=== PATIENT | female | born 1955 | race Caucasian/White ===

== ENCOUNTER 2025-02-13 16:05 | Outpatient (AMB) | payer OTHER, SELFPAY ==
--- NOTE | 2025-02-13 16:07 | AM.OFFWIN_ITS ---
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 Patient Tobacco Use Status: Never used Tobacco Allergies No Known Allergies Allergy (Verified 02/13/25 16:10) Do you need a note to return to daycare/school/sports/work: No HPI HPI Comments History of Present Illness Details History of Present Illness - The patient is a 69-year-old female pr esenting with acute right knee pain and swelling. - Approximately two weeks ago, the patie nt twisted her right leg while moving through a doorway, which resulted in an injury. - Post-injury, care was sought at the ER , where the knee was drake wrapped; no x- ray was conducted at that time. - Pain developed about five days post-in jury on the side of the right leg. - Treatments included the application of ice and administration of Motrin, with little relief noted. - Currently, the pain is severe, primari ly around the right knee, with associated swelling when compared to the contralateral limb. - The patient has no history of thrombot ic events and denies current anticoagulation therapy. - The recent incident has led to decreas ed ambulatory function, contributing to a sedentary lifestyle. Physical Exam General: Cooperative, healthy appearing, comfortable, no acute distress and well developed Orientation: Patient oriented x3 Limitations: No limitations Head: Normal to inspection Ears: Hearing grossly normal bilaterally Nose: Normal External nose present Face and sinus: Normal facial exam Eyes: Appearance normal, both eyes and all related structures Neck: Normal visual inspection and Yes full ROM Respiratory: Normal respiratory effort and able to speak in complete sentences. Clear to auscultation bilaterally Cardiovascular: Regular rate and rhythm. Normal S1 and S2 Skin: No rashes or lesions noted Neuro: Patient oriented x3 Extremities: Right leg more swollen than left leg, with pain reported in the knee area. No pain upon squeezing the calf. Ankle movement is fine. PFSH Social History Patient Tobacco Use Status: Never used Tobacco Review of Systems Const All systems reviewed & are unremarkable except as noted in HPI and below Physical Exam Vital Signs: Last Vital Signs Pulse 77 02/13/25 16:13 BP 130/86 02/13/25 16:13 Pulse Ox 98 02/13/25 16:13 Oxygen Delivery Method Room Air 02/13/25 16:13 Assessment & Plan Assessment & Plan (1) Right leg pain: Code(s): M79.604 - Pain in right leg Plan: VSS pt well appearing, PE remarkable for right calf swelling. Given calf pain, calf swelling and recent reduced mobility due to the knee pain, an ultrasound is ordered to assess for venous thrombosis. Right LE US was negative for DVT. The patient exhibits symptoms of a right knee injury, potentially related to a strain and associated with marked swelling. The recommendation involves awaiting previous x-ray results to inform further management, utilizing an DRAKE wrap for support, and RX'd meloxicam to manage pain and inflammation. The patient is instructed to observe for symptom progression and maintain contact with her primary care physician, particularly pertaining to prior imaging results. Emphasis is placed on mobilization as safely tolerated to avoid complications associated with immobility. Patient is has been said he can borrow a walker from a friend to help her ambulate safely. She does have crutches she is using right now and an Drake wrap. I also recommended she ask her PCP for an orthopedics referral as her right knee pain does not seem to be getting better and it has been 2 weeks. Patient was informed and verbally consented to the use of an ambient scribe for clinic note documentation during this visit. (2) Right leg swelling: Code(s): M79.89 - Other specified soft tissue disorders Plan: as above (3) Right knee pain: Code(s): M25.561 - Pain in right knee Qualifiers: Chronicity: acute Qualified Code(s): M25.561 - Pain in right knee Plan: as above Orders: Orders US venous duplex LE RT Today M79.604 - Pain in right leg, M79.89 - Other specified soft tissue disorders Medications: New meloxicam 15 mg PO DAILY 15 tabs 0RF Coding Level of Care Code New Pt Level 4 (54939) Diagnoses Right leg pain M79.604 Right leg swelling M79.89 Acute pain of right knee M25.561 Chronicity: acute
[2025-02-13 16:13] VITALS: BP 130/86; PULSE 77; O2SAT 98
--- OUTSIDE RECORDS SUMMARY | 2025-02-13 19:22 | XMS_ITS | Continuity of Care Document ---
Author Organization [facility] [place] [address] [place] [address]- Care Team Providers Care Secretary Specialist Name Role Phone Modesta HAWKINS, Tennille Rosa Primary Care Physician Encounter 02/03/25 - 02/10/25 [facility] [address] [facility], [facility] [address] [place], [place] [address] Attending Physician: Mona Ritchie NP Admitting Physician: Mona Ritchie NP Referring Physician: Mona Ritchie NP Encounter Type: OutPatient One Time Allergies, Adverse Reactions, Alerts No Known Allergies Immunizations Given and Recorded Vaccine Date Status Refusal Reason influenza virus vaccine, inactivated 1 09/11/24 Gi bobby influenza virus vaccine, inactivated 2 09/07/23 Gi bobby influenza virus vaccine, inactivated 3 09/07/21 Gi bobby influenza virus vaccine, inactivated 4 10/05/20 Gi bobby influenza virus vaccine, inactivated 11/29/19 Salas rded zoster vaccine, inactivated 12/04/23 Recorded zoster vaccine, inactivated 09/02/23 Recorded [id number] bivalent booster vax 02/16/23 Recorded pneumococcal 20-valent conjugate vaccine 5 09/05/22 Given SARS-CoV-2 (COVID-19) mRNA-1273 vaccine 12/02/21 R ecorded SARS-CoV-2 (COVID-19) mRNA-1273 vaccine 04/14/21 R ecorded SARS-CoV-2 (COVID-19) mRNA-1273 vaccine 03/17/21 R ecorded hepatitis B adult vaccine 11/29/19 Recorded Hepatitis B Vaccine (old term) 09/16/19 Recorded tetanus/diphtheria/pertussis, acel(Tdap) 09/13/19 Given 1Result Comment: [facility] [id number] 2Result Comment: [id number] 3Result Comment: [facility] [id number] 4Result Comment: [id number] 5Result Comment: [facility] [id number] Medications automatic arm blood pressure cuff automatic arm blood pressure cuff, See Instructions, # 1 each, Refills 0, Tot. Refills 0, Maintenance, dx htn, 04/08/24 7:53:00 AM EDT, Supply, 158, cm, 03/14/24 10:08:00 EDT, Height Start Date: 04/08/24 Status: Ordered Quantity: 1.0 Unit: each Repeat number: 1 BD pen needles [id number] BD pen needles [id number], See Instructions, # 200 each, Refills 11, Tot. Refills 11, Maintenance, useto inject insulin 4 times a day E11.9, 05/16/24 11:17:00 AM EDT, Supply, 158, cm, 05/16/24 11:00:00 EDT, Height Start Date: 05/16/24 Status: Ordered Quantity: 200.0 Unit: each Repeat number: 12 BuPROPion IR 75 mg oral tablet 1 tablet, By Mouth, Daily, # 90 tablet, 1 Refills, Maintenance, 10/21/24 2:12:00 PM EST, [facility], 158, cm, 09/19/24 13:15:00 EDT, Height Start Date: 10/21/24 Status: Ordered Quantity: 90.0 Unit: tablet Repeat number: 1 Calcium 600 +D By Mouth, Daily, 0 Refills, Maintenance, 12/27/15 7:55:41 PM EST Start Date: 12/27/15 Status: Ordered Repeat number: 1 Contour lancets 32G Contour lancets 32G, See Instructions, # 200 each, Refills 11, Tot. Refills 11, Maintenance, use tocheck BG 4 times daily. Dx 11.65, 11/1/17 11:57:48 AM EDT, Compound Start Date: 09/20/17 Status: Ordered Quantity: 200.0 Unit: each Repeat number: 12 Contour Next EZ Test Strips See Instructions, # 200 each, Refills 11, Tot. Refills 11, Maintenance, use to check BG 4 times daily. Dx 11.65, 09/20/17 11:55:39 AM EDT, Compound Start Date: 09/20/17 Status: Ordered Quantity: 200.0 Unit: each Repeat number: 12 DexCom G7 Senior Director Insight DexCom G7 Senior Director Insight, See Instructions, # 1 each, Refills 0, Tot. Refills 0, Maintenance, use to monitor blood sugar continuously E11.9, 04/18/24 12:07:00 PM EDT, Supply, 158, cm, 04/18/24 11:03:00 EDT,Height Start Date: 04/18/24 Status: Ordered Quantity: 1.0 Unit: each Repeat number: 1 DexCom G7 sensors DexCom G7 sensors, See Instructions, # 9 each, Refills 3, Tot. Refills 3, Maintenance, use to continuously monitor blood sugar and change sensor every 10 days E11.9, 04/18/24 12:07:00 PM EDT, Supply, 158, cm, 04/18/24 11:03:00 EDT, Height Start Date: 04/18/24 Status: Ordered Quantity: 9.0 Unit: each Repeat number: 4 gabapentin 100 mg oral capsule 1, capsule, By Mouth, Daily at bedtime, # 30 capsule, Refills 3, Tot. Refills 3, Maintenance, 10/24/24 10:21:00 AM EST, Route to Pharmacy Electronically, [id number], 158, cm, 09/19/2413:15:00 EDT, Height Start Date: 10/24/24 Status: Ordered Quantity: 30.0 Unit: capsule Repeat number: 4 HumaLOG KwikPen 100 units/mL injectable solution See Instructions, 16 units 15 minutes before breakfast and lunch, 25 units before dinner, and 10 units before snack MDD 67 units, # 15 mL, 5 Refills, Maintenance, 06/19/24 4:00:00 PM EDT, Solution, [facility] #[id number], Partial fill upon patient request if the prescription is for a schedule II opioid drug., 158, cm, 06/19/24 14:57:00 EDT, Height Start Date: 06/19/24 Status: Ordered Quantity: 15.0 Unit: mL Repeat number: 6 Lanpaty Solostar Pen 100 units/mL subcutaneous solution = 50 units, Subcutaneous Injection, Daily at bedtime, rotate injection sites, # 30 mL, 5 Refills, Maintenance, 07/04/24 11:12:00 AM EDT, [facility] #[id number], 158, cm, 06/19/24 14:57:00 EDT, Height Start Date: 07/04/24 Status: Ordered Quantity: 30.0 Unit: mL Repeat number: 6 levothyroxine 0.112 mg oral tablet 1 tablet, By Mouth, Daily, # 100 tablet, 1 Refills, Maintenance, 02/07/25 9:40:00 AM EDT, [facility], 158, cm, 01/28/25 14:07:00 EDT, Height Start Date: 02/07/25 Status: Ordered Quantity: 100.0 Unit: tablet Repeat number: 1 losartan 50 mg oral tablet 1 tablet, By Mouth, Daily, DIRECTED., # 100 tablet, 1 Refills, Maintenance, 09/27/24 7:25:00 AM EST, [facility], 158, cm, 09/19/24 13:15:00 EDT, Height Start Date: 09/27/24 Status: Ordered Quantity: 100.0 Unit: tablet Repeat number: 1 metFORMIN 1000 mg oral tablet 1 tablet, By Mouth, 2 times a day with meals, # 200 tablet, 2 Refills, Maintenance, 07/24/24 5:00:00 PM EDT, [facility], 158, cm, 07/11/24 13:34:00 EDT, Height Start Date: 07/24/24 Status: Ordered Quantity: 200.0 Unit: tablet Repeat number: 1 One Touch Delica Lancets See Instructions, # 100 each, Refills 6, Tot. Refills 6, Maintenance, Used to check BG 2x/day Dx E11.9 Use with one touch verio glucometer, 11/02/22 4:14:00 PM EST, Supply, 158, cm, 10/26/22 12:37:00EST, Height, 91, kg, 08/26/21 8:54:00 EDT, Dry Weight Start Date: 11/02/22 Status: Ordered Quantity: 100.0 Unit: each Repeat number: 7 One Touch Verio Glucometer One Touch Verio Glucometer, See Instructions, # 1 each, Refills 0, Tot. Refills 0, Maintenance, USeto check BGs 2x daily. E11.9, 10/26/22 1:39:00 PM EST, Supply, 158, cm, 10/26/22 12:37:00 EST, Height, 91, kg, 08/26/21 8:54:00 EDT, Dry Weight Start Date: 10/26/22 Status: Ordered Quantity: 1.0 Unit: each Repeat number: 1 One Touch Verio Test Strips One Touch Verio Test Strips, See Instructions, # 60 each, Refills 5, Tot. Refills 5, Maintenance, Use to check BGs 2x daily. E11.9, 10/26/22 1:40:00 PM EST, Supply, 158, cm, 10/26/22 12:37:00 EST, Height, 91, kg, 08/26/21 8:54:00 EDT, Dry Weight Start Date: 10/26/22 Status: Ordered Quantity: 60.0 Unit: each Repeat number: 6 rOPINIRole 1 mg oral tablet 1 tablet, By Mouth, Daily, # 100 tablet, 1 Refills, Maintenance, 09/27/24 7:25:00 AM EST, [facility], 158, cm, 09/19/24 13:15:00 EDT, Height Start Date: 09/27/24 Status: Ordered Quantity: 100.0 Unit: tablet Repeat number: 1 sertraline 100 mg oral tablet 1 tablet, By Mouth, Daily, # 90 tablet, 1 Refills, Maintenance, 08/27/24 11:31:00 AM EDT, [facility], 158, cm, 08/08/24 13:58:00 EDT, Height Start Date: 08/27/24 Status: Ordered Quantity: 90.0 Unit: tablet Repeat number: 1 simvastatin 40 mg oral tablet 0.5, tablet, By Mouth, Daily, # 50 tablet, Refills 2, Maintenance, 09/27/24 1:08:00 PM EST, Route toPharmacy Electronically, [facility], 158, cm, 09/19/24 13:15:00 EDT, Height Start Date: 09/27/24 Status: Ordered Quantity: 50.0 Unit: tablet Repeat number: 1 Vitamin B-12 1000 mcg oral tablet 1, tablet, By Mouth, Daily, # 30 tablet, Refills 5, Tot. Refills 5, Maintenance, 04/25/24 3:33:00 PM EDT, Route to Pharmacy Electronically, [facility] #[id number], 158, cm, 04/18/24 11:03:00 EDT, Height Start Date: 04/25/24 Status: Ordered Quantity: 30.0 Unit: tablet Repeat number: 6 Problem List Condition Confirmation Course Effective Dates Status H ealth Status Informant Anxiety disorder Confirmed Active Candidal Intertrigo Confirmed Active Depression Confirmed Active Controlled diabetes mellitus with microalbuminuria Confirmed Active Difficulty breathing Confirmed Active Dysuria Confirmed Active Elevated liver enzymes Confirmed Active Esophageal reflux Confirmed Active ROOPA (generalized anxiety disorder) Confirmed Active Hyperlipidemia Confirmed Active Hypertension Confirmed Active Hypothyroidism Confirmed Active LVH (left ventricular hypertrophy) Confirmed Active Morbid obesity Confirmed Active Influenza vaccine needed Confirmed Active Obstructive sleep apnea Confirmed Active Encounter for routine pelvic examination Confirmed Active Periodic limb movements of sleep Confirmed Active Depression, major, recurrent, mild Confirmed Active Restless legs syndrome Confirmed Active Severe obesity (BMI 35.0-39.9) with comorbidity Confirmed Active Ecchymosis Spontaneous Confirmed Active 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 FINDINGS: No bone lesions or fractures. No arthritic changes. No osteochondral defects or intra-articular loose bodies. Trace suprapatellar effusion. IMPRESSION: No acute fracture or significant degenerative disease. Minimal suprapatellar fluid. WSN: [id number] Ordering Physician: Mona Ritchie Dictated By: Priscilla Foster MD Dictated Date/Time: 02/03/25 3:22 pm Reviewed By: Priscilla Foster MD Signed By: Priscilla Foster MD Signed Date/Time: 02/03/25 3:22 pm Transcribed By: BRIDGETT Transcribed Date/Time: 02/03/25 3:22 pm Social History Social History Type Response Smoking Status Former smoker, quit more than 30 days ago entered on: 07/10/19 Sex Sex Representation Female (finding) Patient Care team information Care Team Personnel Name: Modesta HAWKINS, Tennille Rosa Position: [facility] PC[facility] Associate Professional Member Role: PCP Address: [address] [place] [address] [place], [place] [address] Telecom: Name: [employer] SARABIA, Kimberlyn Position: S RN Member Role: Primary Care Nurse Care Team Related Persons Name: KINSEY VENEGAS Insurance Providers Guarantor name: CARLO RUBI Health Plan Information #: 1 Payer: [employer] PPO [employer] Member Number: [id number] Policy Number: NA Group Number: [id number] Health Plan Information #: 2 Payer: [employer] PPO [employer] Member Number: [id number] Policy Number: NA Group Number: [id number]
== END 2025-02-13 16:57 | disposition home or self-care (01) ==
PROVIDERS: PCP Nurse Practitioner Gerontology; Visit Provider Physician Assistant
DX: M79.604 Pain in right leg (principal); M79.89 Other specified soft tissue disorders; M25.561 Pain in right knee

== ENCOUNTER 2025-02-13 16:31 | Outpatient (REF) | payer OTHER, SELFPAY ==
--- NOTE | ~2025-02-13 | US_ITS ---
CLINICAL HISTORY: M79.604 - Pain in right leg R O DVT VENOUS DUPLEX ULTRASOUND RIGHT LOWER EXTREMITY Comparison: None Findings: The visualized deep veins are fully compressible with normal Doppler color flow and spectral tracings. No popliteal cyst. IMPRESSION: 1. Negative for right lower extremity deep vein thrombosis. This document has been electronically signed by: Maria Luisa Kramer DO on 02/13/2025 16:59:19
== END 2025-02-13 16:32 | disposition home or self-care (01) ==
LOC: HO.HMGCX 16:31
PROVIDERS: PCP Nurse Practitioner Gerontology; Visit Provider Physician Assistant
DX: M79.604 Pain in right leg (principal); R60.0 Localized edema
CPT/HCPCS: 93971

== ENCOUNTER → 2025-02-13 16:34 | Outpatient (BNV) | payer OTHER, SELFPAY | PROVIDERS: PCP Nurse Practitioner Gerontology; Visit Provider Radiology Diagnostic Radiology | DX: M79.604 Pain in right leg (principal) | CPT/HCPCS: 93971 ==